=== PATIENT | female | born 1990 | race Caucasian/White ===

== ENCOUNTER 2019-08-01 15:14 | Emergency (ER) | payer BC, SELFPAY ==
--- NOTE | 2019-08-01 15:22 | ED.GENADULT ---
HPI - General Adult General Chief complaint: Back Pain/Injury Stated complaint: back pain/lt side flank pain Time Seen by Provider: 08/01/19 15:23 Source: patient and RN notes reviewed History of Present Illness HPI narrative: Patient is a 29-year-old female presents the urgent care with complaints of left side pain for 3 to 4 months. Patient states she thought it was due to carrying her son on that side and therefore she changed to the right side. Patient states it is been fairly dull however last night she developed low left back pain. Patient denies any known trauma, fall, injury, strenuous activity. Patient states she did notice that her urine was cloudy a few times within the last couple days however she denies any other urinary complaints. Patient states that she has been changing her diet extensively with increased protein shakes, fruits and vegetables. Patient is following a isogenic diet . No other acute complaints. No acute distress noted. Patient read the plan of care. Related Data Home Medications Medication Instructions Recorded Confirmed No Home Medications 08/01/19 08/01/19 Allergies Allergy/AdvReac Type Severity Reaction Status Date / Time No Known Allergies Allergy Unverified 08/01/19 15:21 Review of Systems Review of Systems: Narrative: CONSTITUTIONAL: Denies fever, chills, or sweats. EYES: Denies visual changes, redness, or discharge. ENT: Denies rhinorrhea, congestion, sore throat, or otalgia. CARDIOVASCULAR: Denies chest pain, palpitations, or edema. RESPIRATORY: Denies cough or dyspnea. GASTROINTESTINAL: Denies abdominal pain, nausea, vomiting, or diarrhea. GENITOURINARY: Denies dysuria or hematuria. SKIN: Denies rash or itching. MUSCULOSKELETAL: Reports of left low back and side pain NEUROLOGIC: Denies headache, numbness, or weakness. All other systems reviewed are negative, except as documented in HPI. PMFSH Comments At the time of my signature, I reviewed and agree with the nursing past medical, surgical, social, and family history. There is no relevant family history pertinent to the patient complaint. Exam Narrative: Exam Narrative: GENERAL: This is a well-nourished, well-developed patient, in no apparent distress. HEAD: normocephalic, atraumatic. EYES: PERRL. Sclera clear/white. Vision is grossly intact. EARS: External ears normal NOSE: External nose normal with no obvious nasal discharge THROAT: Mucous membranes moist NECK: Neck supple CARDIOVASCULAR: Regular rate and rhythm without murmurs, gallops, or rubs. RESPIRATORY: Clear to auscultation. Breath sounds equal bilaterally. No wheezes, rales, or rhonchi. GASTROINTESTINAL: Abdomen soft, non-tender, nondistended. Bowel sounds are active. No hepato-splenomegaly, or palpable masses. No guarding. SKIN: warm, intact with no suspicious lesions or rash, good texture and turgor. NEURO: awake, alert, and oriented to person, place and time. There were no obvious focal neurologic abnormalities. EXTREMITIES: No clubbing, cyanosis, or edema. No joint tenderness, effusion, or edema noted. No calf tenderness. Negative Homans sign bilaterally. BACK: Negative bilateral CVA tenderness Course Vital Signs Vital signs: Vital Signs Temperature 98.8 F 08/01/19 15:28 Pulse Rate 83 08/01/19 15:28 Respiratory Rate 18 08/01/19 15:28 Blood Pressure 115/78 08/01/19 15:28 Pulse Oximetry 100 08/01/19 15:28 Temperature 98.8 F 08/01/19 15:28 Pulse Rate 83 08/01/19 15:28 Respiratory Rate 18 08/01/19 15:28 Blood Pressure 115/78 08/01/19 15:28 Pulse Oximetry 100 08/01/19 15:28 Reviewed Medical Decision Making MDM Narrative Medical decision making narrative: Reviewed lab results with the patient. She is aware that her urine analysis was negative for urinary tract infection. Spoke to the patient regarding kidney stone rule out with a CT scan. Kidney stones may be likely considering the diet change and high protein. If
[2019-08-01 15:28] VITALS: BP 115/78; PULSE 83; RESP 18; TEMP 37.1; O2SAT 100
== END 2019-08-01 15:55 | disposition home or self-care (01) ==
PROVIDERS: Emergency Provider Nurse Practitioner Family
DX: M54.5 Low back pain (principal)
CPT/HCPCS: 81003; 99212; G0463

== ENCOUNTER 2020-04-15 16:20 | Outpatient (CLI) | payer BC, SELFPAY ==
[2020-04-15 16:44] LABS: Hematocrit 36.7 % (37.0-47.0); Hemoglobin 12.4 g/dL (12.0-15.0); Mean Corpuscular HGB Conc 33.8 g/dl (32-36); Mean Corpuscular Hemoglobin 29.3 pg (26-34); Mean Corpuscular Volume 86.8 fl (80-100); Mean Platelet Volume 10.9 fl (7.4-10.4); Platelet Count Result 217 k/mm3 (150-375); Red Blood Count 4.23 M/mm3 (4.2-5.4); Red Cell Distribution Width 15.1 % (11.5-14.5); White Blood Count 10.6 K/mm3 (4.5-10.0)
[2020-04-16 12:17] LABS: Rapid Plasma Reagin Non-Reactive (NonReactive)
== END 2020-04-15 16:21 | disposition home or self-care (01) ==
LOC: ANHLAB 16:22
PROVIDERS: Visit Provider Obstetrics & Gynecology
DX: Z34.93 Encounter for supervision of normal pregnancy, unspecified, third trimester (principal); Z3A.00 Weeks of gestation of pregnancy not specified
CPT/HCPCS: 36415; 85027; 86592; 86850; 86900; 86901

== ENCOUNTER 2020-04-17 11:26 | Inpatient (IN) | payer BC, SELFPAY ==
--- NOTE | 2020-04-15 16:30 | PM.IMHP ---
H&P: HPI History of Present Illness Date/Time: 04/15/20 16:30 Chief complaint: Pre-admit, macrosomia Narrative: Lela Talamantes is a 30 year old female last menstrual was 07/23/2019, EDC is 04/28/2020 presents at 38 half weeks gestation for primary section she has a history of a 9 lb delivery and this 1 has [id number] at 37 weeks her blood pressure is a worsening with 2+ protein elevated blood pressure in the office. She opts for prophylactic section. 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 Gender identity (if verbalized by the patient): Female Spiritual care concerns: No Agree to blood products: Yes Meds Home Medications and Allergies Home Medications Medication Instructions Recorded Confirmed Type vitamins no.119-iron tablet PO 08/13/19 History fumarate 29 mg-folic acid 1 mg tablet valacyclovir 500 mg PO DAILY 03/31/20 03/31/20 History Allergies Allergy/AdvReac Type Severity Reaction Status Date / Time No Known Allergies Allergy Verified 03/31/20 15:40 Exam Const: General: no acute distress Eyes: General: appearance normal, both eyes and all related structures Neck: Neck: supple and no JVD Thyroid: thyroid normal Resp: Effort & Inspection: normal respiratory effort Auscultation: clear to auscultation bilaterally Cardio: Rate: regular rate Rhythm: regular rhythm GI: Inspection: non-distended GI Palp: Yes Soft to palpation, No Tenderness to palpation present (GI) and No Guarding due to palpation present (GI) Auscultation: normal bowel sounds : General: Yes bladder normal to inspection External Female Exam: normal external appearance Speculum Exam - Cervix: Cervical os closed (1 cm) Skin: General skin exam: no rashes or lesions noted Extrem: General: normal to inspection and no edema Psych: Mental Status: mental status grossly normal Affect: normal affect Assessment and Plan Additional Plan impression: 38 and half week with macrosomia and gestational hypertension Plan: Primary low transverse section
[2020-04-17] VITALS (52 sets, daily range): BP systolic 100–187; BP diastolic 35–169; PULSE 64–199; RESP 16–20; TEMP 36.5–37.1; O2SAT 97–100; BMI 35.7
--- NOTE | 2020-04-17 06:38 | WPDHPUPDATE1 ---
History and Physical Update Update Date/Time: 04/17/20 06:38 History and Physical has been reviewed, including an updated exam of the patient. There are NO changes in the patient's condition. Risks, benefits, and alternatives have been discussed and questions answered. Patient agrees to proceed with procedure.
--- NOTE | 2020-04-17 11:50 | LDADM ---
This patient, Lela Talamantes, was admitted to Labor/Delivery/Recovery 120 on 04/17/20 at 11:26. Plans for primary section, pain management and were discussed with patient. Patient/family oriented to hospital policies and general routines including ID bracelet, bed and alarms, visiting hours, pain management, procedures, bathroom and other care routines, personal items, smoking policy, room service/diet and guest tray routines, infant security routines, and visiting hours. Patient/Family are encouraged to report perceived risks to care and to ask questions if they do not understand what they are told or what they should do. See OBIX for further documentation.
[2020-04-17] MEDS: LACTATED RINGERS 1,000 ML 125 ML IV CONT (11:53)
--- NOTE | 2020-04-17 12:39 | P.PNAN_ITS ---
Anes - Initial Pre Proc Eval Procedure: Operation Date: 04/17/20 13:30 Proposed Procedures p Primary Section - Eyad Reynoso MD Date/Time: 04/17/20 12:39 Surgeon: Eyad Reynoso MD Pre Op Diagnosis: C/S Patient Data Age: 30 Gender: F Height: 1.65 m Weight: 97.5 kg Last Vital Signs Pulse 91 04/17/20 11:47 BP 126/85 04/17/20 11:47 Allergies Allergy/AdvReac Type Severity Reaction Status Date / Time No Known Allergies Allergy Verified 03/31/20 15:40 Home Medications Medication Instructions Recorded Confirmed Type vitamins no.119-iron 1 tablet PO DAILY 08/13/19 04/17/20 History fumarate 29 mg-folic acid 1 mg tablet valacyclovir 500 mg PO DAILY 03/31/20 04/17/20 History hydrocodone-acetaminophen [[place]] 1 tablet PO Q4H PRN #30 tablet 04/17/20 Rx Patient hx anesthesia problems: none Family hx anesthesia problems: none [facility] Past Medical History Medical History (Updated 04/17/20 @ 12:40 by Jose Martin Brown MD) macrosomia PIH ( induced hypertension) Family History Family History Mother Depression Grandparent , maternal Acute myocardial infarction Social History Social History Social History: pt does not drink caffeine Smoking status: Never smoker Second hand tobacco smoke exposure: No Alcohol intake: current Substance use: never Substance use type: does not use Additional occupation/education comments: Laboratory Helper Gender identity (if verbalized by the patient): Female Spiritual care concerns: No Agree to blood products: Yes Anes - Eval Final PreProcedure Day of Procedure 04/17/20 12:39 Patient weight: obese Heart: regular rate and rhythm Lungs: clear to auscultation and normal air movement Airway: Mallampati scale class II Neurological: alert and oriented Last oral intake: >/= 8 hours ASA classification: III Emergent: no Anesthetic plan: proceed Anesthesia type and monitoring: regional spinal Informed Consent: The patient's anesthetic plan and its attendant risks and benefits were discussed with the patient/family/POA. Questions were solicited and answers provided to the satisfaction of the patient/family/POA.
[2020-04-17] MEDS: LACTATED RINGERS 1,000 ML 999 ML IV CONT (13:32)
[2020-04-17] MEDS: ceFAZolin 2 GM/D5W 50 ML 2 GM/50 ML BAG IVPB (15:10)
--- NOTE | 2020-04-17 15:57 | PM.PROC ---
Procedure Note - Detailed Date of procedure: 04/17/20 Pre-op diagnosis: C/S Surgeon: Eyad Reynoso MD postop diagnosis: section for suspected macrosomia Procedure: Primary low-transverse section and Anesthesia: Spinal Complications: None Findings: 10 lb 10 oz male with Apgars of 8 9 and 1 minutes and 5 minutes respectively. Normal-appearing ovaries and tubes Description of procedure: The patient was prepped and draped in the normal sterile fashion placed in the supine position. Under excellent spinal anesthetic the abdomen was entered in a Pfannenstiel incision progressive the layers to the fascia. Fascia was entered and upward outward fashion bilaterally. The underlying muscles were in the parietal peritoneum elevated by Bee clamps. The perineal body was entered by sharp dissection carried superiorly and inferiorly to the dome of the bladder. A bladder blade was placed and a bladder flap formed. Bladder blade returned. A low-transverse incision made the head delivered in the FATOUMATA position. Anterior posterior shoulder delivered spontaneously. Cord clamped x2 and cut. passed off the table given Apgars of 8 [id number] and 9 [id number]. Cord blood was drawn. Placenta delivered intact manually and delivered through the abdomen. After assuring no membranes or debris remained in the uterus, the uterus was closed with continuous running locking 0 Vicryl from lateral edge to lateral edge. This was followed by a 2nd imbricating running locking 0 Vicryl from lateral edge to lateral edge. Hemostasis was assured. The ovaries and tubes appeared within normal limits. Uterus returned to the abdomen. The laps removed and accounted for. The fascia closed with continuous running 0 Vicryl from lateral edge to midline bilaterally. Irrigation the subcutaneous layer and the skin closed with 4 O Monocryl and glue. All sponge, needle, instrument counts were correct. There were no immediate complications. Mom and baby doing fine at the time of this dictation
[2020-04-17] MEDS: ONDANSETRON INJ 4 MG/2 ML VIAL IV PUSH (16:53)
[2020-04-17] MEDS: OXYTOCIN 30 UNITS/NS 500 ML 30 UNITS/500 ML BAG 125 UNITS IV CONT (16:55)
[2020-04-17] MEDS: diphenhydrAMINE HCl INJ 50 MG/ML VIAL 12.5 MG IV PUSH (17:53)
[2020-04-17] MEDS: fentaNYL CITRATE INJ (*CRX) 100 MCG/2 ML VIAL 25 MCG IV PUSH (18:15)
--- NOTE | 2020-04-17 18:35 | OBPPTRN ---
Patient transferred to post room #292 via stretcher. Support person present. Oriented to unit, room, information board, rooming in, admission packet and security measures. Patient verbalizes understanding. Infant with patient.
[2020-04-17] MEDS: KETOROLAC 30 MG/ML VIAL (*BKC) IV PUSH (20:16)
[2020-04-18] MEDS: KETOROLAC 30 MG/ML VIAL (*BKC) IV PUSH (04:19)
[2020-04-18 04:30] VITALS: BP 117/57; PULSE 79; RESP 16; TEMP 36.8; O2SAT 99
[2020-04-18 05:19] LABS: Basophils Percent Auto 0.3 % (0.2-1.2); Eosinophils Absolute Auto 0.1 K/mm3 (0-0.3); Hematocrit 31.9 % (37.0-47.0); Hemoglobin 10.5 g/dL (12.0-15.0); Immature Granulocyte Absolute 0.04 K/mm3 (0.00-0.031); Immature Granulocyte Percent A 0.3 % (0-0.5); Lymphocytes Absolute Auto 2.05 K/mm3 (0.9-3.2); Mean Corpuscular HGB Conc 32.9 g/dl (32-36); Mean Corpuscular Hemoglobin 29.2 pg (26-34); Mean Corpuscular Volume 88.9 fl (80-100); Mean Platelet Volume 11.4 fl (7.4-10.4); Monocytes Absolute Auto 1.1 K/mm3 (0.1-0.6); Neutrophils Absolute Auto 10.3 K/mm3 (1.3-6.7); Neutrophils Percent Auto 75.4 % (45.5-73.1); Platelet Count Result 180 k/mm3 (150-375); Red Blood Count 3.59 M/mm3 (4.2-5.4); Red Cell Distribution Width 15.2 % (11.5-14.5); White Blood Count 13.7 K/mm3 (4.5-10.0)
--- NOTE | 2020-04-18 07:07 | PM.OBPNVD ---
OB - PN: Subj Subjective Date/time seen: 04/18/20 07:07 Patient comments: no complaints and pain well controlled baby status: doing well and nursing well OB - PN: Obj Data Labs CBC & Chem 7: 04/18/20 04:26 Labs: Laboratory Results - last 24 hr 04/18/20 04:26 WBC 13.7 H RBC 3.59 L Hgb 10.5 L Hct 31.9 L MCV 88.9 MCH 29.2 MCHC 32.9 RDW 15.2 H Plt Count 180 MPV 11.4 H Immature Gran % (Auto) 0.3 Neut % (Auto) 75.4 H Lymph % (Auto) 15.0 L [place] % (Auto) 8.0 Eos % (Auto) 1.0 Baso % (Auto) 0.3 Lymph # (Auto) 2.05 [place] # (Auto) 1.1 H Eos # (Auto) 0.1 Baso # (Auto) 0.0 Abs Immat Gran (auto) 0.04 H Absolute Neuts (auto) 10.3 H Absolute Nucleated RBC 0.0 Nucleated RBC % 0.0 OB - PN A/P Plan day: 1 Plan: routine care Time Spent With Patient Time: Total time spent is greater than 50% in coordination of care (as documented) at patient's floor/unit and/or counseling patient: Time with patient: less than 15 minutes Review of Systems Review of Systems: All systems reviewed & are unremarkable except as noted in HPI and below Exam Const: General: no acute distress Eyes: General: appearance normal, both eyes and all related structures Neck: Neck: supple and no JVD Thyroid: thyroid normal Resp: Effort & Inspection: normal respiratory effort Auscultation: clear to auscultation bilaterally Cardio: Rate: regular rate Rhythm: regular rhythm GI: Inspection: normal to inspection and incision (cdi) Percussion: Yes normal to percussion : General: Yes bladder normal to palpation External Female Exam: normal external appearance Speculum Exam - Vagina: normal vaginal discharge and No vaginal bleeding Speculum Exam - Cervix: nontender Bimanual exam- vagina & uterus: bladder normal to palpation and No Cervical tenderness present OB/external & speculum: No vaginal bleeding Skin: General skin exam: no rashes or lesions noted Extrem: General: normal to inspection and no edema Psych: Mental Status: mental status grossly normal Affect: normal affect
[2020-04-18 07:30] VITALS: BP 103/72; PULSE 77; RESP 18; TEMP 36.7; O2SAT 97
[2020-04-18] MEDS: MULTIVIT/MIN/PREN/FOL AC/IRON TABLET 1 TAB PO (12:45)
[2020-04-18] MEDS: DOCUSATE SODIUM 100 MG CAPSULE PO ×2 (12:45→16:15)
[2020-04-18] MEDS: IBUPROFEN 600 MG TABLET PO ×2 (12:46→19:41)
[2020-04-18] MEDS: HYDROcodone/acetaminophen (*CRX) 5-325 MG TABLET 1 TAB PO ×3 (12:47→19:41)
--- NOTE | 2020-04-18 13:49 | WPDANLDPN2 ---
Anes-Prog Note L&D Date/Time: 04/18/20 13:49 Comfortable throughout: section Neuraxial method: spinal Epidural/Spinal procedure site: clean & non-tender Neuro status: Neuro function grossly intact. Cardiovascular status: normal Respiratory status: normal Airway patency: baseline Mental status: baseline Post-Op hydration status: normal Vital Signs: Last Vital Signs Temp 36.7 C 04/18/20 07:30 Pulse 77 04/18/20 07:30 Resp 18 04/18/20 07:30 BP 103/72 04/18/20 07:30 Pulse Ox 97 04/18/20 07:30 Pain score (VAS): 0/10. Patient resting in bed at time of assessment, appears comfortable. Support person at bedside. I/O: Intake & Output 04/17/20 04/18/20 04/18/20 23:59 07:59 15:59 Intake Total 240 Output Total 783 1700 Balance -543 -1700 Post-procedural complaints: none Patient feedback: Patient satisfied with anesthetic care.
--- NOTE | 2020-04-18 13:49 | WPDANLDNPN2 ---
Anes-Prog Note L&D-Neuraxial Date/Time: 04/18/20 13:49 Neuraxial medications: epidural PF morphine Opiod-related complaints: none Patient feedback: Patient satisfied with post-operative pain management.
[2020-04-18 19:35] VITALS: BP 118/70; PULSE 76; RESP 18; TEMP 37.1; O2SAT 100
[2020-04-19] MEDS: IBUPROFEN 600 MG TABLET PO ×2 (05:07→11:37)
[2020-04-19] MEDS: HYDROcodone/acetaminophen (*CRX) 5-325 MG TABLET 1 TAB PO ×2 (05:07→11:37)
--- NOTE | 2020-04-19 06:44 | PM.OBPNVD ---
OB - PN: Subj Subjective Date/time seen: 04/19/20 06:44 Patient comments: no complaints and pain well controlled baby status: doing well and nursing well OB - PN: Obj Data Labs CBC & Chem 7: 04/18/20 04:26 OB - PN A/P Plan day: 2 Plan: routine care, discharge home and follow up 6 weeks (4 weeks) Time Spent With Patient Time: Total time spent is greater than 50% in coordination of care (as documented) at patient's floor/unit and/or counseling patient: Time with patient: less than 15 minutes Review of Systems Review of Systems: All systems reviewed & are unremarkable except as noted in HPI and below Exam Const: General: no acute distress Eyes: General: appearance normal, both eyes and all related structures Neck: Neck: supple and no JVD Thyroid: thyroid normal Resp: Effort & Inspection: normal respiratory effort Auscultation: clear to auscultation bilaterally Cardio: Rate: regular rate Rhythm: regular rhythm GI: Inspection: non-distended GI Palp: Yes Soft to palpation, No Tenderness to palpation present (GI) and No Guarding due to palpation present (GI) Auscultation: normal bowel sounds : General: Yes bladder normal to palpation External Female Exam: normal external appearance Speculum Exam - Vagina: normal vaginal discharge and No vaginal bleeding Speculum Exam - Cervix: nontender Bimanual exam- vagina & uterus: bladder normal to palpation and No Cervical tenderness present OB/external & speculum: No vaginal bleeding Skin: General skin exam: no rashes or lesions noted Extrem: General: normal to inspection and no edema Psych: Mental Status: mental status grossly normal Affect: normal affect
--- NOTE | 2020-04-19 06:45 | PM.DS ---
DS: Admitting Diagnosis Admitting Diagnosis Admitting Diagnosis: C/S DS: Summary Time Spent with Patient Time attestation: Total time spent providing and/or coordinating discharge services: Patient was admitted for primary low-transverse section at 38 and half weeks gestation for elevated blood pressures and expected macrosomic . She delivered a 10 lb 10 oz male. Her hospital course was unremarkable. She remained afebrile. She was up, waiting the difficulty, eating regular diet, and generally without complaints. Exam Const: General: no acute distress Eyes: General: appearance normal, both eyes and all related structures Neck: Neck: supple and no JVD Thyroid: thyroid normal Resp: Effort & Inspection: normal respiratory effort Auscultation: clear to auscultation bilaterally Cardio: Rate: regular rate Rhythm: regular rhythm GI: Inspection: non-distended GI Palp: Yes Soft to palpation, No Tenderness to palpation present (GI) and No Guarding due to palpation present (GI) Auscultation: normal bowel sounds : General: Yes bladder normal to palpation External Female Exam: normal external appearance Speculum Exam - Vagina: normal vaginal discharge and No vaginal bleeding Speculum Exam - Cervix: nontender Bimanual exam- vagina & uterus: bladder normal to palpation and No Cervical tenderness present OB/external & speculum: No vaginal bleeding Skin: General skin exam: no rashes or lesions noted Extrem: General: normal to inspection and no edema Psych: Mental Status: mental status grossly normal Affect: normal affect Discharge Plan Discharge Attending physician on discharge: Eyad Reynoso Discharging Clinician: Eyad Reynoso Patient Disposition: Home, Self-Care Activity: may shower, no straining, may drive after 2 weeks and pelvic rest Diet: heart healthy Patient Instructions: Antibiotic Form Stand Alone Forms: General Discharge Information Follow-up/Referrals: Eyad Reynoso MD [Physician] - Discharge Medications: New hydrocodone-acetaminophen [[place]] 5-325 mg tablet 1 tablet PO Q4H PRN (Reason: pain) Qty: 30 RF: 0 Continued PNV 119-iron fum-folic acid 29 mg iron- 1 mg tablet 1 tablet PO DAILY RF: 0 valacyclovir 500 mg Tablet 500 mg PO DAILY RF: 0 Date of admission: 04/17/20 11:26 Primary Care Provider: UNKNOWN,DOCTOR Admitting Provider: Eyad Reynoso Attending physician on admission: Eyad Reynoso Condition: Stable
[2020-04-19 07:20] VITALS: BP 118/79; PULSE 73; RESP 16; TEMP 36.6; O2SAT 100
[2020-04-19] MEDS: MULTIVIT/MIN/PREN/FOL AC/IRON TABLET 1 TAB PO (09:06)
[2020-04-19] MEDS: DOCUSATE SODIUM 100 MG CAPSULE PO (09:06)
--- NOTE | 2020-04-19 13:59 | PC.NURSE ---
1000-Patient was given the opportunity to view the discharge video Mother & Baby Care, The First Two Weeks and to ask questions. Patient declined viewing the video and has been given the mother/baby guide for home reference.
[2020-04-20 08:29] VITALS: BP 124/88; PULSE 85; RESP 20; TEMP 36.7; O2SAT 100
== END 2020-04-19 13:38 | disposition home or self-care (01) | DRG 787 ==
LOC: ANHLDR 11:30 → ANHOB2 19:07
PROVIDERS: Admitting Provider Obstetrics & Gynecology; Visit Provider Obstetrics & Gynecology
PROC: 10D00Z1 Extraction of Products of Conception, Low, Open Approach (ICD-10-PCS; CPT 59514; principal; 2020-04-17 13:30)
DX: O36.63X0 Maternal care for excessive fetal growth, third trimester, not applicable or unspecified (principal); O98.52 Other viral diseases complicating childbirth; O13.4 Gestational [pregnancy-induced] hypertension without significant proteinuria, complicating childbirth; B33.8 Other specified viral diseases; Z3A.38 38 weeks gestation of pregnancy; Z37.0 Single live birth
CPT/HCPCS: 36415; 85025; 85027; 86592; 86850; 86900; 86901; A9270; J0131; J0690; J1200; J1885; J2274; J2370; J2405; J2590; J3010; J7120

== ENCOUNTER 2022-11-25 02:08 | Day surgery (SDC) | payer BC, SELFPAY ==
--- NOTE | 2022-11-22 07:18 | P.HP_ITS ---
H&P: HPI History of Present Illness Date/Time: 11/22/22 07:18 Chief Complaint: First trimester missed A/B Narrative: This is a 32-year-old female in her 1st trimester with a missed A/B ultrasound showed no growth findings consistent with pending ABG. She was offered watchful waiting versus suction D&C in opted for the latter. 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 Gender identity (if verbalized by the patient): Female Spiritual care concerns: No Agree to blood products: Yes Meds Home Medications and Allergies Home Medications Medication Instructions Recorded Confirmed Type tobramycin 0.3 %-dexamethasone 0.1 2 drp EACH EYE QID #2.5 mL 08/29/22 08/29/22 Rx % eye drops,suspension (TobraDex) Allergies Allergy/AdvReac Type Severity Reaction Status Date / Time No Known Allergies Allergy Verified 08/29/22 09:00 Exam Const: General: cooperative, healthy appearing and comfortable Nutritional Appearance: average body habitus Orientation/consciousness: oriented to person, oriented to place and oriented to time HENMT: Head: normal to inspection Resp: Effort & Inspection: normal respiratory effort Cardio: Rate: regular rate Rhythm: regular rhythm Heart sounds: S1 normal heart sound present and S2 normal heart sound present GI: Inspection: normal to inspection : External Female Exam: normal external appearance Speculum Exam - Vagina: normal appearance of the vagina Speculum Exam - Cervix: normal appearance of the cervix Bimanual exam- vagina & uterus: enlarged Bimanual Exam- Adnexa, other: normal adnexae Assessment and Plan Assessment and plan (1) Missed : Code(s): O02.1 - Missed Status: Acute Plan Suction dilatation curettage
[2022-11-22 11:10] VITALS: BMI 31.6
--- NOTE | 2022-11-22 11:13 | PC.NURSE ---
Report to the Outpatient Waiting Room, entrance under the green pavilion located off [facility], at time 1315 on date 11/25/22. Planned Procedure Time: 1515. Time changes happen often and if your time is changed the preop area will call you the afternoon before. - You and your visitor will be asked to self-screen and do not enter if you have any COVID symptoms. - A mask is optional within the hospital at this time. Patients may have clear liquids (water, carbonated beverages, clear teas, apple juice) until 3 hours prior to surgery with a maximum of 20 ounces. - No food from midnight until time of surgery Take the following medications with a SIP of water the morning of surgery: N/A DO NOT STOP ANY OF YOUR OTHER PRESCRIPTION MEDICATIONS PRIOR TO SURGERY ?EXCEPT THE FOLLOWING Medications to discontinue per physician: N/A Date to take last dose: N/A Please no make-up, nail maori, hairspray, perfume, deodorant, or body powder the day of surgery. No jewelry (including any body piercings) or valuables the day of surgery, leave them at home. Please take a shower or bath the night before, or the morning of, surgery with an antibacterial soap. Wear comfortable, loose fitting clothing. - Jewelry must be removed prior to entering the operating room. Rings and piercings that are not removed may be cut off. - The hospital will not accept responsibility for valuables. - Please leave all valuables, including medications, at home the day of surgery. If you are going home after surgery, a licensed dedicated driver must drive you home. - NO public transportation without another adult if you receive anesthesia. - We recommend that an adult stay with you for 24 hours following discharge. - We also recommend that you do not drive, make important decision, drink alcoholic beverages, or take any drugs that were not prescribed by your health care provider for at least 24 hours after your discharge time. Follow any additional instructions given to you from your surgeon. If you or anyone in your household have experienced Covid symptoms in the past week, please notify your surgeon or the nurse liaison at the phone number below for possible testing. Telephone instructions given to PT - AAMIR MCKEON and asked if any additional questions and then verbalized understanding. Patient advised to call surgeon office or pre surgery nurse liaison [phone] if any additional questions.
[2022-11-25] VITALS (12 sets, daily range): BP systolic 76–117; BP diastolic 45–70; PULSE 61–83; RESP 12–17; TEMP 37.2; O2SAT 99–100
--- NOTE | 2022-11-25 06:27 | WPDHPUPDATE1 ---
History and Physical Update Update Date/Time: 11/25/22 06:27 History and Physical has been reviewed, including an updated exam of the patient. There are NO changes in the patient's condition. Risks, benefits, and alternatives have been discussed and questions answered. Patient agrees to proceed with procedure.
[2022-11-25] MEDS: ACETAMINOPHEN 500 MG TABLET 1000 MG PO (13:29)
--- NOTE | 2022-11-25 13:51 | P.PNAN_ITS ---
Anes - Initial Pre Proc Eval Procedure: Operation Date: 11/25/22 15:15 Proposed Procedures p Suction Dilation and Curettage - Eyad Enriquez MD Date/Time: 11/25/22 13:51 Surgeon: Eyad Enriquez MD Pre Op Diagnosis: Missed Ab Patient Data Age: 32 Gender: F Height: 1.65 m Weight: 87 kg Last Vital Signs Temp 37.2 C 11/25/22 13:35 Pulse 83 11/25/22 13:35 Resp 16 11/25/22 13:35 BP 117/70 11/25/22 13:35 Pulse Ox 100 11/25/22 13:35 O2 Del Method Room Air 11/25/22 13:35 Allergies Allergy/AdvReac Type Severity Reaction Status Date / Time No Known Allergies Allergy Verified 11/25/22 13:26 Home Medications Medication Instructions Recorded Confirmed Type hydrocodone 5 mg-acetaminophen 325 1 tablet PO Q4H PRN pain #14 tabs 11/25/22 Rx mg tablet Patient hx anesthesia problems: none Family hx anesthesia problems: none Results Review: All pre-operative results and documents have been reviewed as part of the pre- operative evaluation. 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 Gender identity (if verbalized by the patient): Female Spiritual care concerns: No Agree to blood products: Yes Anes - Eval Final PreProcedure Day of Procedure 11/25/22 13:51 Patient weight: obese Heart: regular rate and rhythm Lungs: clear to auscultation Airway: Mallampati scale class II Neurological: alert and oriented Last oral intake: >/= 8 hours ASA classification: II Emergent: no Anesthetic plan: proceed Anesthesia type and monitoring: general GIVS and standard monitoring Results Review: All pre-operative results and documents have been reviewed as part of the pre- operative evaluation. Informed Consent: The patient's anesthetic plan and its attendant risks and benefits were discussed with the patient/family/POA. Questions were solicited and answers provided to the satisfaction of the patient/family/POA.
[2022-11-25] MEDS: LACTATED RINGERS 1,000 ML 30 ML IV CONT ×2 (13:56→15:45)
[2022-11-25 14:05] LABS: Hematocrit 40.1 % (37.0-47.0); Hemoglobin 13.5 g/dL (12.0-15.0)
[2022-11-25] MEDS: LIDOCAINE HCL 1% LOCAL INJ 10 ML VIAL INFILTRATE (15:10)
--- NOTE | 2022-11-25 15:15 | P.OP_ITS ---
Procedure Note - Detailed Date of Procedure 11/25/22 Pre-op Diagnosis Missed Ab Post-op Diagnosis Same Procedure Performed Suction dilatation curettage Surgeon Eyad Enriquez MD Anesthesia MAC and Local Indications 32-year-old female with an incomplete AB Findings products conception Description of Procedure patient was prepped draped sterile fashion placed in the dorsal lithotomy position. Under excellent IV sedation weighted speculum was placed in the posterior fornix vagina. Anterior lip of the cervix grasped with single-tooth tenaculum. 2.5cc of 1% xylocaine anesthesia placed at 2, 4, 8, 10:00 a.m. of the cervix. Uterus sounded to 11cm. Serial dilatation with fragmented dilators performed. This was followed passed by passage of the 10. Suction curette. A moderate to large amount of tissue was removed. When a good grating sound was heard the instruments were withdrawn. Blood loss was estimated at50cc. All sponge, needle, instrument counts were correct. There were no immediate c omplications. She was Rh positive and therefore did not require RhoGAM Estimated Blood Loss 50 Drains No Packing No Pathology Yes Complications No immediate complications Condition Stable Disposition PACU
[2022-11-25] MEDS: oxyCODONE HCL (*CRX) 5 MG TAB IR PO (15:44)
[2022-11-25] MEDS: ONDANSETRON INJ 4 MG/2 ML VIAL IV PUSH (15:50)
--- NOTE | 2022-11-25 16:19 | SUR.PHASEII ---
1555 - pt. BP 76/45. Scant amount of blood shown on peripad. Abdomen is soft, nondistended, and nontender. Pt. is alert and awake. Oriented x4. Pt. states minimal nausea but improving since Zofran. MD Garcia notified. New orders for RN to give 500mL bolus of LR.
--- NOTE | 2022-11-25 16:21 | SUR.PHASEII ---
1610 - MD Garcia at bedside to assess pt. BP 99/62 (MAP 68). RN to give the remaining 500mL LR. If pt. remains stable, they can discharge home per MD Garcia.
--- NOTE | 2022-11-25 17:50 | SUR.PHASEII ---
1715- Pt. VS Stable. Scant amount of bleeding shown on peripad. Abdomen is soft, non-distended, non tender. Pt. states abdominal cramping is mild and tolerable. Pt. states no nausea or dizziness. Pt. tolerating PO Crackers and juice. Pt. easily ambulated in room and states no dizziness. Pt. states they feel ready to discharge home.
== END 2022-11-25 17:30 | disposition home or self-care (01) ==
PROVIDERS: Visit Provider Obstetrics & Gynecology
PROC: (CPT 59820; principal; 2022-11-25 15:15)
DX: O02.1 Missed abortion (principal)
CPT/HCPCS: 59820; 36415; 85014; 85018; 85461; 86850; 86900; 86901; 88305; A9270; J1100; J2250; J2405; J2704; J3010; J7120